=== PATIENT | female | born 1990 | race Caucasian/White ===

== ENCOUNTER 2018-06-09 18:37 | Observation (INO) | payer BC ==
[~2018-06-09] VITALS: Ht 165.1 cm; Wt 55.0 kg
[~2018-06-09 18:37] MED LIST: AUGMENTIN 875 M1 TAB PO; CONCERTA18 MG PO; ESCITALOPRAM
[2018-06-09 19:57] LABS: BASO % 0.4 % (0.0-2.0); EOS # 0.1 (0.0-0.7); EOS % 0.9 % (0-4.0); GRAN # 5.3 (1.4-6.5); GRAN % 67.9 % (42.2-75.2); HEMATOCRIT 37.8 % (37.0-47.0); HEMOGLOBIN 12.6 g/dl (12.5-16.0); LYMPH # 1.9 (1.2-3.4); LYMPH % 23.9 % (20.0-51.0); MEAN CELL VOLUME 89 fl (80.0-100.0); MEAN CORPUSCULAR HEMOGLOBIN 30 pg (27.0-31.0); MEAN CORPUSCULAR HGB CONC 33 g/dl (33.0-37.0); MEAN PLATELET VOLUME 11.2 fl (7.4-10.4); MONO # 0.5 (0.1-0.6); MONO % 6.6 % (1.7-9.3); PLATELET COUNT 222 K/mm3 (130-400); RED BLOOD COUNT 4.25 M/mm3 (4.10-5.30); REDCELL DISTRIBUTION WIDTH-CV 12.9 % (11.5-14.5)
[2018-06-09 20:11] LABS: ALANINE AMINOTRANSFERASE 17 U/L (9-52); ALBUMIN 4.4 gm/dL (3.5-5.0); ALKALINE PHOSPHATASE 37 U/L (50-136); ANION GAP 5 mmol/L (7-16); AST,SGOT 22 U/L (15-37); BILIRUBIN,TOTAL 0.5 mg/dL (0.0-1.0); BLOOD UREA NITROGEN 15 mg/dL (7-17); CALCIUM 9.8 mg/dL (8.4-10.2); CARBON DIOXIDE 29 mmol/L (22-30); CHLORIDE 105 mmol/L (98-107); CREATININE, serum 0.75 mg/dL (0.52-1.25); GLUCOSE 91 mg/dL (74-106); POTASSIUM 4.1 mmol/L (3.4-5.0); SODIUM 139 mmol/L (137-145); TOTAL PROTEIN 7.2 gm/dL (6.4-8.2)
[2018-06-09 20:12] LABS: C-REACTIVE PROTEIN < 0.5 mg/dL (0.0-0.9)
[2018-06-09 20:25] LABS: HCG,QUANTITATIVE 2131 mIU/mL (0-5)
[2018-06-09 21:39] LABS: COLLECTION METHOD CLEAN CATCH
[2018-06-09] MEDS ORDERED: DUREZOL 5 ML5 ML OU (21:41)
[2018-06-09] MEDS ORDERED: RETIN-A 0.01% GEL15 (21:41)
[2018-06-09] MEDS ORDERED: PRENATAL (21:42)
[2018-06-09 21:44] LABS: MUCOUS Present /lpf; PH 6 (5-8); SQUAMOUS EPITHELIAL 0-2 /hpf; URINE APPEARANCE Clear; URINE BACTERIA None Seen /hpf; URINE BILIRUBIN Negative (NEGATIVE); URINE BLOOD Negative (NEGATIVE); URINE COLOR Yellow; URINE GLUCOSE Negative (NEGATIVE); URINE KETONE 1+ (NEGATIVE); URINE LEUKOCYTE ESTERASE Negative (NEGATIVE); URINE NITRATE Negative (NEGATIVE); URINE PROTEIN(semi-quant) Negative (NEGATIVE); URINE RBC 0-2 /hpf; URINE UROBILINOGEN Negative (NEGATIVE)
[2018-06-10] VITALS (8 sets, daily range): BP systolic 100–128; BP diastolic 53–81; PULSE 85–110; TEMP 97.9–98
[2018-06-10] MEDS ORDERED: IBU600 MG PO (01:01)
[2018-06-10] MEDS ORDERED: PERCOCET 325 MG1 TA2 PO (01:01)
== END 2018-06-10 12:45 | disposition home or self-care (01) ==
LOC: COL.ER 18:37 → OB 23:35
PROVIDERS: Emergency Medicine
DX: O00.101 Right tubal pregnancy without intrauterine pregnancy (principal); O99.611 Diseases of the digestive system complicating pregnancy, first trimester
CPT/HCPCS: J1100; J1885; J2270; J2405; J2550; J2704; J3010; J7030; J7120